=== PATIENT | male | born 1990 | race African-American/Black ===

== ENCOUNTER 2017-05-19 13:43 | Emergency (ER) | payer SELFPAY, OTHER | END 2017-05-19 15:35 | disposition left against medical advice (07) | LOC: ER 13:43 | DX: F41.9 Anxiety disorder, unspecified (principal); Z53.21 Procedure and treatment not carried out due to patient leaving prior to being seen by health care provider ==

== ENCOUNTER 2017-06-14 21:40 | Emergency (ER) | payer SELFPAY | END 2017-06-14 22:11 | disposition home or self-care (01) | LOC: ER 22:11 | DX: S61.213A Laceration without foreign body of left middle finger without damage to nail, initial encounter (principal); W25.XXXA Contact with sharp glass, initial encounter; Y93.89 Activity, other specified; Y99.8 Other external cause status; Y92.89 Other specified places as the place of occurrence of the external cause | CPT/HCPCS: 99282 ==